=== PATIENT | female | born 1945 | race Caucasian/White ===

== ENCOUNTER 2016-09-30 07:32 | Inpatient (IN) | payer MEDICARE, OTHER ==
[2016-09-17 11:49] LABS: BASOPHILS 0.9 %; BASOPHILS ABSOLUTE 0.09 10/3/uL (0.0-0.16); EOSINOPHILS 2.4 %; EOSINOPHILS ABSOLUTE 0.23 10/3/uL (0.0-0.53); HEMATOCRIT 37.5 % (36.0-48.0); HEMOGLOBIN 12.5 g/dL (12.0-16.0); IMMATURE GRANULOCYTES 0.3 %; IMMATURE GRANULOCYTES ABSOLUTE 0.03 10/3/uL (0.0-0.11); LYMPHOCYTES 28.6 %; LYMPHOCYTES ABSOLUTE 2.79 10/3/uL (0.67-4.30); MEAN CORPUS HGB CONC 33.3 g/dL (32.0-36.0); MEAN CORPUSCULAR HEMOGLOB 29.3 pg (26.0-34.0); MEAN PLATELET VOLUME 9.3 fL (9.2-13.0); MONOCYTES 6.2 %; MONOCYTES ABSOLUTE 0.61 10/3/uL (0.21-1.20); NEUTROPHILS 61.6 %; NEUTROPHILS ABSOLUTE 6.02 10/3/uL (2.02-8.40); RBC DISTRIBUTION WIDTH 15.6 % (12.0-16.0); RED CELL COUNT 4.26 10/6/uL (4.0-5.6); WHITE BLOOD CELLS 9.8 10/3/uL (4.5-10.5)
[2016-09-17 11:50] LABS: MANUAL DIFF NO %; PLATELET COUNT 111 10/3/uL (150-400)
[2016-09-17 11:55] LABS: INTERNATIONAL NORMAL RATI 1.1 UNITS (-); PROTIME (NOT ORD) 14.5 SEC (12.0-14.5)
[2016-09-17 11:56] LABS: PARTIAL THROMBO TIME 33.9 SEC (22.5-37.2)
[2016-09-17 12:05] LABS: A/G RATIO 1.1 (0.7-1.9); ALBUMIN 3.9 G/DL (3.5-5.0); ALKALINE PHOSPHATASE 133 U/L (45-117); BUN (BLOOD UREA NITROGEN) 16 MG/DL (6-23); CHLORIDE, SERUM 101 MMOL/L (96-112); CO2 (CARBON DIOXIDE) 33 MMOL/L (24-34); CREATININE 1.01 MG/DL (0.55-1.02); GFR AFRICAN AMERICAN 66 ML/MIN (>=60); GFR NON AFRICAN AMERICAN 57 ML/MIN (>=60); GLOBULIN 3.4 G/DL (2.5-4.1); GLUCOSE, SERUM 98 MG/DL (60-99); POTASSIUM, SERUM 3.5 MMOL/L (3.5-5.3); SGOT(AST) 77 U/L (5-40); SGPT(ALT) 101 U/L (5-65); SODIUM, SERUM 140 MMOL/L (135-148); TOTAL BILIRUBIN 0.8 MG/DL (0-1.2); TOTAL PROTEIN 7.3 G/DL (6.0-8.5)
[2016-09-17 13:28] LABS: ASCORBIC ACID (UR NOT ORDER) NEG (NEG); BILIRUBIN, URINE NEGATIVE (NEG); KETONE, URINE NEGATIVE (NEG); LEUKOCYTE ESTERASE(NOT OR NEG (NEG); WBC (NOT ORDERED) (RFLEX) 2 (0-5)
--- NOTE | ~2016-09-30 | OP ---
Record Of Operation [facility] [address] [place]. [address] NAME: JAI ALVARES : 49 STATUS : ADM IN PAT#: [id number] AGE: 71 ADM/REG DATE : 09/30/16 MR#: [id number] REPORT SERV DATE: 09/30/16 DICTATED BY: TRINA MOORE DATE: 09/30/16 REPORT STATUS : Draft TRANSCRIBED BY: MODL DATE: 09/30/16 DATE OF PROCEDURE: 09/30/2016 PREOPERATIVE DIAGNOSIS: Left knee arthritis. POSTOPERATIVE DIAGNOSIS: Left knee arthritis. PROCEDURE PERFORMED: Left total knee arthroplasty. SURGEON: Trina Moore M.D. GUIDE DOG TRAINER: Maciej Dasilva. ANESTHESIA: General with adductor block and local infusion. PROCEDURE IN DETAIL: The patient is clearly identified and after obtaining informed consent is brought to the operating room at [facility] where anesthesia is induced uneventfully with excellent anesthetic effect. Subsequently, the affected extremity is prepped and draped in the usual manner and after an appropriate time-out procedure is performed, via an anterior approach, the skin is divided, fascial planes are elevated, paramedial approach to the knee is made. The structures themselves are elevated, excised, and debrided were appropriate, whereupon the patella is carefully everted, calipered, and planed and with the size and type being reproduced with the appropriate-size patella, trialing is performed successfully. At this point, the patella is then carefully subluxed laterally, the knee is flexed, osteophytes around the distal femur are removed, followed by the ACL being divided. The femoral canal is entered and vented, at which point with the intramedullary guide being utilized, the distal femoral cut is made. At this point, the tibia is carefully subluxed anteriorly. The surrounding soft tissues to the tibia are protected with Hohmann retractors, at which point the extramedullary guide is utilized to perform the proximal tibial cut and after cleansing these tissues, the spacer block is utilized in extension to confirm excellent extension, stability, and alignment. The guiding pins are then all carefully removed and the knee is then flexed. The femur is sized, whereupon the anterior, posterior, chamfer, and box cuts are made appropriately. The proximal tibia then is assessed. Osteophytes and surrounding soft tissues are removed and debrided were appropriate. Posterior osteophytes are removed as well. The menisci are excised and thus concluding trialings performed successfully. The proximal tibia then is carefully prepared utilizing proper cement technique. The permanent implants have been carefully placed into position uneventfully where upon copious irrigations performed, the permanent tibial implants applied and thus concluded. The joint was then copiously irrigated, at which point it is closed carefully in layers including Vicryl and jasmin for the skin, at which point Aquacel sterile dressing is applied. The patient is allowed to awaken and is transferred to the bed and subsequently to the recovery room in stable condition having tolerated the procedure well. ESTIMATED BLOOD LOSS: 50 mL. Record Of Operation [facility] [id number] [place]. [address] NAME: JAI ALVARES : 49 STATUS : ADM IN LOCATED WITHIN [facility]#: [id number] AGE: 71 ADM/REG DATE : 09/30/16 MR#: [id number] REPORT SERV DATE: 09/30/16 DICTATED BY: TRINA MOORE DATE: 09/30/16 REPORT STATUS : Draft TRANSCRIBED BY: SHABBIR DATE: 09/30/16 FLUIDS: 1000 mL. TOURNIQUET TIME: 39 minutes. PATHOLOGY: Sent specimen. MICROBIOLOGY: None. COMPLICATIONS: None. SPONGE AND NEEDLE COUNTS: Reportedly correct. ANTIBIOTICS: Administered appropriately preoperatively and ordered to be discontinued within 23 hours. IMPLANTS: Attune knee by DePuy, femur 5 narrow, tibia 4, patella 35, polyethylene /14. [facility]/SHABBIR Trina Moore M.D. / [id number] CC: Trina Moore M.D.
--- NOTE | ~2016-09-30 | CN ---
Consultation Report [facility] [address] [place]. [address] NAME: JAI ALVARES : 49 STATUS : ADM IN [facility]#: [id number] AGE: 71 ADM/REG DATE : 09/30/16 MR#: [id number] REPORT SERV DATE: 10/01/16 DICTATED BY: ZHANE ARROYO DATE: 10/01/16 REPORT STATUS : Draft TRANSCRIBED BY: MODL DATE: 10/01/16 HOSPITALIST CONSULTATION DATE OF CONSULTATION: 10/01/2016 REASON FOR CONSULTATION: Low blood pressure per Dr. Moore. HISTORY OF PRESENT ILLNESS: This is an awake, alert and oriented, pleasant 71-year-old female, who was admitted to Dr. Moore for left total knee arthroplasty that was completed on 09/30/2016. She has been hypotensive since returning from surgery today with blood pressure ranges from 71/43 to 97/48 this shift. Her highest documented blood pressure since returning from surgery was 111/57. There have been no labs since admission to review, with most recent labs done preoperatively on 09/17 that were unremarkable at that time. The patient reports she felt dizzy when she was standing up to go to the bathroom upon arrival after surgery, but that dizziness has resolved. She denies chest pain, palpitations, dyspnea, headache, and dizziness at this time. PAST MEDICAL HISTORY: Significant for: 1. Hypertension. 2. Osteoarthritis. 3. Graves disease resulting in hypothyroid after radioactive treatment. 4. Anxiety. PAST SURGICAL HISTORY: Significant for: 1. Left total knee arthroplasty, 09/30/2016. 2. Appendectomy. 3. Hysterectomy. 4. Cataract surgery, intraocular lens implant, bilateral eyes. 5. , 1967. PRIMARY CARE PHYSICIAN: The patient's PCP is Dr. Alexandra Presley. SOCIAL HISTORY: The patient lives at home with her . Reports quitting smoking cigarettes greater than 40 years ago and denies alcohol or illicit drug use. FAMILY HISTORY: Father at age 70 of complications related to leukemia. Mother at 89 of natural causes with a history of osteoarthritis, rheumatoid arthritis, "blood disorder," and breast cancer. ALLERGIES: NO KNOWN ALLERGIES. HOME MEDICATIONS: Include: 1. Celebrex 200 mg p.o. daily. 2. Lexapro 10 mg p.o. daily. Consultation Report [facility] [address] [place]. [address] NAME: JAI ALVARES : 49 STATUS : ADM IN PAT#: [id number] AGE: 71 ADM/REG DATE : 09/30/16 MR#: [id number] REPORT SERV DATE: 10/01/16 DICTATED BY: ZHANE ARROYO DATE: 10/01/16 REPORT STATUS : Draft TRANSCRIBED BY: MODL DATE: 10/01/16 3. Synthroid 125 mcg p.o. daily. 4. Aleve 220 mg p.o. q.12 hours. 5. Diovan HCT 160/12.5 mg p.o. daily. Of note, her last dose was at 5:00 a.m., the morning of her surgery. REVIEW OF SYSTEMS: A complete 10-point review of systems was negative except as per HPI. PHYSICAL EXAMINATION: VITAL SIGNS: T 98.2, P 104, RR 10, BP 88/53, SpO2 of 99% on room air. GENERAL: Well-appearing female, in no acute distress. NEUROLOGIC: Awake, alert, oriented x3 without focal deficit. HEENT: Normocephalic, atraumatic without lymphadenopathy. NECK: Supple. No JVD. LUNGS: CTA in all lung ascencio with normal respiratory effort. CV: Regular rate and rhythm. S1, S2 auscultated without murmur. ABDOMEN: Soft, round, nontender. Bowel sounds hypoactive in quadrants. No masses. EXTREMITIES: No cyanosis or edema. Cap refill within normal limits. PSYCHIATRIC: Normal affect. SKIN: Clean, dry, and intact. Mucous membranes pink and moist. ASSESSMENT AND PLAN: 1. Hypotension, possibly related to volume depletion. We will obtain a current set of labs, place her on fall precautions. We will also hold regularly scheduled blood pressure medicines for systolic blood pressure less than or equal to 100. We will also bolus her with 1 L of normal saline at this time. After discussion with Dr. Ramon, supervising physician, we will also transfuse 1 unit of packed red blood cells, add a portable chest x-ray to be read by Radiology, and also check a UA to rule out infectious process. 2. Hypothyroid. The patient reports that her labs were recently checked at her PCP's office this visit, and her medication dosage was increased. She is post Graves disease treatment. We will continue her current treatment, monitor her labs while she is here. 3. Anxiety. This is chronic and currently well controlled on her current treatment. We will continue this, monitor labs, and provide supportive care as needed. 4. Post left total knee arthroplasty done on 09/30/2016, and we will defer to the primary team for management of this. Thank you for this consult. We are pleased to follow this patient with you. This consult was completed through thorough review of [employer], old records, [employer], and current chart as well as thorough interview with the patient. [facility]/SHABBIR Consultation Report [place] [id number] [place]. [id number] NAME: JAI ALVARES : 49 STATUS : ADM IN PAT#: [id number] AGE: 71 ADM/REG DATE : 09/30/16 MR#: [id number] REPORT SERV DATE: 10/01/16 DICTATED BY: ZHANE ARROYO DATE: 10/01/16 REPORT STATUS : Draft TRANSCRIBED BY: SHABBIR DATE: 10/01/16 Zhane Arroyo NP / [id number]
[~2016-09-30 07:32] MED LIST: ALEVE220 MG PO; CELEBREX2 PO; DIOVAN HC1 PO; LEXAPRO10 PO; SYN125 PO
[2016-10-01 03:38] LABS: MEAN CORPUS HGB CONC 32.7 g/dL (32.0-36.0); MEAN CORPUSCULAR HEMOGLOB 29.4 pg (26.0-34.0); MEAN PLATELET VOLUME 9.5 fL (9.2-13.0); PLATELET COUNT 106 10/3/uL (150-400); RBC DISTRIBUTION WIDTH 17.8 % (12.0-16.0)
[2016-10-01 03:41] LABS: HEMATOCRIT 25.1 % (36.0-48.0); HEMOGLOBIN 8.2 g/dL (12.0-16.0); INTERNATIONAL NORMAL RATI 1.4 UNITS (-); MANUAL DIFF YES %; PROTIME (NOT ORD) 16.6 SEC (12.0-14.5); RED CELL COUNT 2.79 10/6/uL (4.0-5.6); WHITE BLOOD CELLS 17.3 10/3/uL (4.5-10.5)
[2016-10-01 03:51] LABS: CHLORIDE, SERUM 103 MMOL/L (96-112); CREATININE 0.72 MG/DL (0.55-1.02); GFR AFRICAN AMERICAN 99 ML/MIN (>=60); GFR NON AFRICAN AMERICAN 85 ML/MIN (>=60); GLUCOSE, SERUM 82 MG/DL (60-99); POTASSIUM, SERUM 3.5 MMOL/L (3.5-5.3); SGOT(AST) 71 U/L (5-40); SGPT(ALT) 82 U/L (5-65); SODIUM, SERUM 141 MMOL/L (135-148); TOTAL BILIRUBIN 0.7 MG/DL (0-1.2)
[2016-10-01 03:52] LABS: ALBUMIN 2.7 G/DL (3.5-5.0); ALKALINE PHOSPHATASE 99 U/L (45-117); BUN (BLOOD UREA NITROGEN) 10 MG/DL (6-23); CALCIUM, SERUM 7.9 MG/DL (8.5-10.4); CO2 (CARBON DIOXIDE) 26 MMOL/L (24-34); GLOBULIN 2.8 G/DL (2.5-4.1); TOTAL PROTEIN 5.5 G/DL (6.0-8.5)
[2016-10-01 04:49] LABS: ANISOCYTOSIS 1+ (5-10/OIF) (0-5/OIF); BASOPHILS 1 %; BASOPHILS ABSOLUTE (CALC) 0.17 10/3/uL (0.0-0.16); EOSINOPHILS 3 %; EOSINOPHILS ABSOLUTE (CALC) 0.52 10/3/uL (0.0-0.53); LYMPHOCYTES 14 %; LYMPHOCYTES ABSOLUTE (CALC) 2.42 10/3/uL (0.67-4.30); MONOCYTES 1 %; MONOCYTES ABSOLUTE (CALC) 0.17 10/3/uL (0.21-1.20); NEUTROPHILS ABSOLUTE (CALC) 14.01 10/3/uL (2.02-8.40); PLATELET ESTIMATE SLT DEC (ADEQUATE); SEGMENTED NEUTROPHIL (0) 81 %; TOTAL NUCLEATED CELLS 100
[2016-10-01 07:24] LABS: WBC (NOT ORDERED) (RFLEX) 0 (0-5)
[2016-10-01 08:12] LABS: ASCORBIC ACID (UR NOT ORDER) NEG (NEG); BILIRUBIN, URINE NEGATIVE (NEG); KETONE, URINE NEGATIVE (NEG); LEUKOCYTE ESTERASE(NOT OR NEG (NEG)
[2016-10-02 07:44] LABS: INTERNATIONAL NORMAL RATI 1.6 UNITS (-)
[2016-10-02 07:46] LABS: BUN (BLOOD UREA NITROGEN) 7 MG/DL (6-23); CALCIUM, SERUM 8.5 MG/DL (8.5-10.4); CHLORIDE, SERUM 106 MMOL/L (96-112); CO2 (CARBON DIOXIDE) 29 MMOL/L (24-34); CREATININE 0.56 MG/DL (0.55-1.02); GFR AFRICAN AMERICAN 110 ML/MIN (>=60); GFR NON AFRICAN AMERICAN 95 ML/MIN (>=60); GLUCOSE, SERUM 109 MG/DL (60-99); POTASSIUM, SERUM 3.8 MMOL/L (3.5-5.3); SODIUM, SERUM 143 MMOL/L (135-148)
[2016-10-02 07:53] LABS: BASOPHILS 0.6 %; BASOPHILS ABSOLUTE 0.09 10/3/uL (0.0-0.16); EOSINOPHILS 2.1 %; EOSINOPHILS ABSOLUTE 0.31 10/3/uL (0.0-0.53); HEMOGLOBIN 9.3 g/dL (12.0-16.0); IMMATURE GRANULOCYTES 0.5 %; IMMATURE GRANULOCYTES ABSOLUTE 0.07 10/3/uL (0.0-0.11); LYMPHOCYTES ABSOLUTE 2.07 10/3/uL (0.67-4.30); MEAN CORPUS HGB CONC 33.1 g/dL (32.0-36.0); MEAN CORPUSCULAR HEMOGLOB 29.8 pg (26.0-34.0); MEAN CORPUSCULAR VOLUME 90.1 fL (80-100); MEAN PLATELET VOLUME 9.2 fL (9.2-13.0); MONOCYTES 11.1 %; MONOCYTES ABSOLUTE 1.64 10/3/uL (0.21-1.20); NEUTROPHILS 71.7 %; NEUTROPHILS ABSOLUTE 10.64 10/3/uL (2.02-8.40); PLATELET COUNT 100 10/3/uL (150-400); RBC DISTRIBUTION WIDTH 17.8 % (12.0-16.0); RED CELL COUNT 3.12 10/6/uL (4.0-5.6); WHITE BLOOD CELLS 14.8 10/3/uL (4.5-10.5)
[2016-10-02 08:01] LABS: HEMATOCRIT 28.1 % (36.0-48.0); MANUAL DIFF NO %
[2016-10-02] MEDS ORDERED: OXYCOD PO (10:37)
[2016-10-02] MEDS ORDERED: C5 PO (10:37)
[2017-01-12] MEDS ORDERED: LEXAPRO10 PO (19:03)
[2017-01-12] MEDS ORDERED: SYN125 PO (19:03)
[2017-01-15] MEDS ORDERED: PROTONIX PO (12:08)
[2017-01-15] MEDS ORDERED: MELA3 PO (12:08)
[2017-01-15] MEDS ORDERED: FESO4 PO (12:09)
[2017-01-15] MEDS ORDERED: SPIRO50 PO (12:12)
[2017-02-16] MEDS ORDERED: L40 PO (12:18)
[2017-02-16] MEDS ORDERED: URSO FORTE500 MG PO (12:18)
[2017-03-19] MEDS ORDERED: SYN1 PO (15:00)
[2017-03-19] MEDS ORDERED: LEXAPRO10 PO (15:01)
[2017-03-19] MEDS ORDERED: XIFAXAN550 MG PO (15:01)
== END 2016-10-02 12:28 | disposition home or self-care (01) | DRG 470 ==
LOC: SDC/OF 07:32 → PACU 12:41 → 3JRC 14:32
PROVIDERS: Hospitalist; Nurse Practitioner; Nurse Practitioner Family; Orthopaedic Surgery
PROC: 3E0T3CZ (ICD-10-PCS; 2016-09-30)
PROC: 0SRD0J9 Replacement of Left Knee Joint with Synthetic Substitute, Cemented, Open Approach (ICD-10-PCS; principal; 2016-09-30 09:30)
PROC: 30233N1 Transfusion of Nonautologous Red Blood Cells into Peripheral Vein, Percutaneous Approach (ICD-10-PCS; 2016-10-01)
DX: M17.12 Unilateral primary osteoarthritis, left knee (principal); D62 Acute posthemorrhagic anemia; I10 Essential (primary) hypertension; E05.00 Thyrotoxicosis with diffuse goiter without thyrotoxic crisis or storm; F41.9 Anxiety disorder, unspecified; Z90.710 Acquired absence of both cervix and uterus; Z98.890 Other specified postprocedural states; Z90.49 Acquired absence of other specified parts of digestive tract; Z79.899 Other long term (current) drug therapy; Z80.3 Family history of malignant neoplasm of breast; Z82.61 Family history of arthritis; Z80.6 Family history of leukemia; I95.81 Postprocedural hypotension; E86.9 Volume depletion, unspecified; E03.9 Hypothyroidism, unspecified; F32.9 Major depressive disorder, single episode, unspecified
CPT/HCPCS: 36415; 71010; 80048; 80053; 81001; 83735; 85025; 85610; 85730; 86850; 86900; 86901; 86920; 87641; 88305; 88311; 97116-GP; 97150-GP; 97161-GP; 97165-GO; A9270-GY; C1776; G8978-CJ-GP; G8979-CH-GP; G8987-CJ-GO; G8988-CJ-GO; G8989-CJ-GO; J0690; J1885; J2250; J2274; J2370; J2795; J3010; P9016

== ENCOUNTER 2016-10-14 18:04 | Emergency (ER) | payer MEDICARE, OTHER ==
[2016-10-14 15:14] LABS: WBC (NOT ORDERED) (RFLEX) 0 (0-5)
[2016-10-14 15:22] LABS: BASOPHILS 1.5 %; BASOPHILS ABSOLUTE 0.17 10/3/uL (0.0-0.16); EOSINOPHILS 2.1 %; EOSINOPHILS ABSOLUTE 0.25 10/3/uL (0.0-0.53); ER CBC TAT 0 Hrs 10 Mins; HEMATOCRIT 32.7 % (36.0-48.0); HEMOGLOBIN 10.6 g/dL (12.0-16.0); IMMATURE GRANULOCYTES 0.4 %; IMMATURE GRANULOCYTES ABSOLUTE 0.05 10/3/uL (0.0-0.11); LYMPHOCYTES 30.9 %; LYMPHOCYTES ABSOLUTE 3.61 10/3/uL (0.67-4.30); MANUAL DIFF NO %; MEAN CORPUS HGB CONC 32.4 g/dL (32.0-36.0); MEAN CORPUSCULAR HEMOGLOB 30.7 pg (26.0-34.0); MEAN CORPUSCULAR VOLUME 94.8 fL (80-100); MEAN PLATELET VOLUME 9.2 fL (9.2-13.0); MONOCYTES 7.7 %; NEUTROPHILS 57.4 %; NUCLEATED RED BLOOD CELLS 0.5 /100WBC (0-0); PLATELET COUNT 146 10/3/uL (150-400); RBC DISTRIBUTION WIDTH 21.9 % (12.0-16.0); RED CELL COUNT 3.45 10/6/uL (4.0-5.6); WHITE BLOOD CELLS 11.7 10/3/uL (4.5-10.5)
[2016-10-14 15:28] LABS: INTERNATIONAL NORMAL RATI 3.2 UNITS (-); PARTIAL THROMBO TIME 78.8 SEC (22.5-37.2); PROTIME (NOT ORD) 32.5 SEC (12.0-14.5)
[2016-10-14 15:33] LABS: BUN (BLOOD UREA NITROGEN) 8 MG/DL (6-23); CALCIUM, SERUM 8.6 MG/DL (8.5-10.4); CHLORIDE, SERUM 101 MMOL/L (96-112); CO2 (CARBON DIOXIDE) 28 MMOL/L (24-34); CREATININE 0.67 MG/DL (0.55-1.02); GFR AFRICAN AMERICAN 104 ML/MIN (>=60); GFR NON AFRICAN AMERICAN 90 ML/MIN (>=60); GLUCOSE, SERUM 104 MG/DL (60-99); POTASSIUM, SERUM 3.4 MMOL/L (3.5-5.3); SGOT(AST) 142 U/L (5-40); SGPT(ALT) 104 U/L (5-65); SODIUM, SERUM 139 MMOL/L (135-148)
[2016-10-14 15:35] LABS: A/G RATIO 0.9 (0.7-1.9); ALBUMIN 3.3 G/DL (3.5-5.0); ALKALINE PHOSPHATASE 146 U/L (45-117); GLOBULIN 3.7 G/DL (2.5-4.1); TOTAL BILIRUBIN 3.1 MG/DL (0-1.2)
[2016-10-14 15:51] LABS: ASCORBIC ACID (UR NOT ORDER) NEG (NEG); BILIRUBIN, URINE NEGATIVE (NEG); KETONE, URINE NEGATIVE (NEG); LEUKOCYTE ESTERASE(NOT OR NEG (NEG); NITRITE (URINE) NEG (NEG)
[2016-10-14 15:53] LABS: ER URINALYSIS TAT 0 Hrs 37 Mins
[~2016-10-14 18:04] MED LIST changes: +C5 PO; +OXYCOD PO
[2017-01-12] MEDS ORDERED: SYN125 PO (19:03)
[2017-01-12] MEDS ORDERED: LEXAPRO10 PO (19:03)
[2017-01-15] MEDS ORDERED: PROTONIX PO (12:08)
[2017-01-15] MEDS ORDERED: MELA3 PO (12:08)
[2017-01-15] MEDS ORDERED: FESO4 PO (12:09)
[2017-01-15] MEDS ORDERED: SPIRO50 PO (12:12)
[2017-02-16] MEDS ORDERED: URSO FORTE500 MG PO (12:18)
[2017-02-16] MEDS ORDERED: L40 PO (12:18)
[2017-03-19] MEDS ORDERED: SYN1 PO (15:00)
[2017-03-19] MEDS ORDERED: LEXAPRO10 PO (15:01)
[2017-03-19] MEDS ORDERED: XIFAXAN550 MG PO (15:01)
== END 2016-10-14 18:16 | disposition home or self-care (01) ==
LOC: ER 18:04
PROVIDERS: Emergency Medicine
DX: R31.9 Hematuria, unspecified (principal); Z88.5 Allergy status to narcotic agent; Z79.01 Long term (current) use of anticoagulants; Z79.899 Other long term (current) drug therapy
CPT/HCPCS: 80053; 81001; 83690; 85025; 85610; 85730; 99283

== ENCOUNTER 2016-10-17 02:09 | Emergency (ER) | payer MEDICARE, OTHER ==
[2016-10-17 02:04] LABS: BASOPHILS 0.7 %; EOSINOPHILS 0.3 %; EOSINOPHILS ABSOLUTE 0.05 10/3/uL (0.0-0.53); IMMATURE GRANULOCYTES 0.5 %; IMMATURE GRANULOCYTES ABSOLUTE 0.07 10/3/uL (0.0-0.11); LYMPHOCYTES 11.1 %; MANUAL DIFF NO %; MEAN CORPUS HGB CONC 31.4 g/dL (32.0-36.0); MEAN CORPUSCULAR HEMOGLOB 30.1 pg (26.0-34.0); MEAN CORPUSCULAR VOLUME 95.9 fL (80-100); MEAN PLATELET VOLUME 9.3 fL (9.2-13.0); MONOCYTES ABSOLUTE 0.87 10/3/uL (0.21-1.20); NEUTROPHILS 81.4 %; NEUTROPHILS ABSOLUTE 11.77 10/3/uL (2.02-8.40); PLATELET COUNT 147 10/3/uL (150-400); RBC DISTRIBUTION WIDTH 22.1 % (12.0-16.0); RED CELL COUNT 3.65 10/6/uL (4.0-5.6); WHITE BLOOD CELLS 14.5 10/3/uL (4.5-10.5)
[2016-10-17 02:12] LABS: PARTIAL THROMBO TIME 49.7 SEC (22.5-37.2); PROTIME (NOT ORD) 22.5 SEC (12.0-14.5)
[2016-10-17 02:19] LABS: A/G RATIO 0.8 (0.7-1.9); ALBUMIN 3.2 G/DL (3.5-5.0); ALKALINE PHOSPHATASE 157 U/L (45-117); BUN (BLOOD UREA NITROGEN) 9 MG/DL (6-23); CALCIUM, SERUM 9.1 MG/DL (8.5-10.4); CHLORIDE, SERUM 103 MMOL/L (96-112); CO2 (CARBON DIOXIDE) 27 MMOL/L (24-34); GFR AFRICAN AMERICAN 76 ML/MIN (>=60); GFR NON AFRICAN AMERICAN 65 ML/MIN (>=60); GLOBULIN 4.2 G/DL (2.5-4.1); POTASSIUM, SERUM 3.5 MMOL/L (3.5-5.3); SGOT(AST) 114 U/L (5-40); SGPT(ALT) 94 U/L (5-65); SODIUM, SERUM 142 MMOL/L (135-148); TOTAL BILIRUBIN 2.8 MG/DL (0-1.2); TOTAL PROTEIN 7.4 G/DL (6.0-8.5)
[2016-10-17 02:25] LABS: GLUCOSE, SERUM 148 MG/DL (60-99)
[2016-10-17 02:40] LABS: PLATELET ESTIMATE ADQ (ADEQUATE); POLYCHROMASIA 1+ (2-5/OIF) (0-1/OIF)
[2016-10-17 03:33] LABS: ASCORBIC ACID (UR NOT ORDER) NEG (NEG); BILIRUBIN, URINE NEGATIVE (NEG); ER URINALYSIS TAT 0 Hrs 00 Mins; KETONE, URINE TRACE MG/DL (NEG); LEUKOCYTE ESTERASE(NOT OR NEG (NEG); NITRITE (URINE) NEG (NEG); WBC (NOT ORDERED) (RFLEX) 4 (0-5)
[2017-01-12] MEDS ORDERED: SYN125 PO (19:03)
[2017-01-12] MEDS ORDERED: LEXAPRO10 PO (19:03)
[2017-01-15] MEDS ORDERED: PROTONIX PO (12:08)
[2017-01-15] MEDS ORDERED: MELA3 PO (12:08)
[2017-01-15] MEDS ORDERED: FESO4 PO (12:09)
[2017-01-15] MEDS ORDERED: SPIRO50 PO (12:12)
[2017-02-16] MEDS ORDERED: L40 PO (12:18)
[2017-02-16] MEDS ORDERED: URSO FORTE500 MG PO (12:18)
[2017-03-19] MEDS ORDERED: SYN1 PO (15:00)
[2017-03-19] MEDS ORDERED: LEXAPRO10 PO (15:01)
[2017-03-19] MEDS ORDERED: XIFAXAN550 MG PO (15:01)
== END 2016-10-17 04:30 | disposition home or self-care (01) ==
LOC: ER 02:09
PROVIDERS: Nurse Practitioner Acute Care
PROC: 0T2BX0Z Change Drainage Device in Bladder, External Approach (ICD-10-PCS; principal; 2016-10-17)
DX: N13.2 Hydronephrosis with renal and ureteral calculous obstruction (principal); R31.9 Hematuria, unspecified; R94.5 Abnormal results of liver function studies; I10 Essential (primary) hypertension; F41.9 Anxiety disorder, unspecified; Z87.891 Personal history of nicotine dependence; Z88.5 Allergy status to narcotic agent; Z79.899 Other long term (current) drug therapy; Z79.01 Long term (current) use of anticoagulants; R33.9 Retention of urine, unspecified
CPT/HCPCS: 71010; 74176; 80053; 81001; 85025; 85610; 85730; 96374; 96375; 96376; 99285; J1170; J2405